=== PATIENT | male | born 1955 | race Caucasian/White ===

== ENCOUNTER → 2017-04-09 | Outpatient (CLI) | payer OTHER | LOC: BRMIMAGING 10:11 | PROVIDERS: ATTEND Orthopaedic Surgery Sports Medicine | DX: Z13.820 Encounter for screening for osteoporosis (principal); M89.8X9 Other specified disorders of bone, unspecified site ==

== ENCOUNTER → 2017-04-22 | Outpatient (CLI) | payer OTHER ==
[~2017-04-22] MED LIST: GADOBUTROL 10 ML VIAL IVP ONE
== END ==
LOC: FIMAGING 10:14
PROVIDERS: ATTEND Psychiatry & Neurology Neurology
DX: R51 Headache (principal); R93.0 Abnormal findings on diagnostic imaging of skull and head, not elsewhere classified
CPT/HCPCS: A9585